=== PATIENT | male | born 1990 | race Caucasian/White ===

== ENCOUNTER 2017-10-15 03:15 | Inpatient (IN) | payer OTHER ==
[~2017-10-15] VITALS: Ht 190.5 cm; Wt 86.0 kg
[~2017-10-15 03:15] MED LIST: ALBUTEROL0.09 MG/A1 INH; ALLEGRA-D 12 HO1 TER PO; ALLEGRA180 MG PO; BENADRYL ALLERG25 M5 PO; CEPHALEXIN500 M1 PO; CLINDAMYCIN HC300 MG PO; CLINDAMYCIN150 MG PO; DEPAKOTE250 MG PO; DILANTIN100 MG PO; DIVALPROEX SOD250 M1 PO; HYDROCODONE BIT1 T11 PO; MOTRIN800 MG PO; Motrin,Rufen800 MG PO; OMNICEF300 MG PO; PREDNICOT20 MG PO; PREDNISONE10 MG PO; PREDNISONE20 M1 PO; TEGRETOL200 MG PO; TRIAMCINOLONE AC0.1% T; VICODIN 5/500 505 MG PO; ZITHROMAX250 MG PO; ZYRTEC10 MG PO
[2017-10-15 03:16] VITALS: BP 118/78
[2017-10-15 03:49] LABS: BASO % 0.3 % (0.0-1.0); EOS # 0.2 10*3/uL (0.0-0.4); EOS % 2.2 % (1.0-4.0); HEMATOCRIT 39.3 % (42.0-52.0); LYMPH # 1.9 10*3/uL (1.3-4.4); LYMPH % 25.5 % (27.0-41.0); MEAN CELL VOLUME 94.2 fl (80.0-94.0); MEAN CORPUSCULAR HGB 31.2 pg (27.0-31.0); MEAN CORPUSCULAR HGB CONC 33.1 g/dl (33.0-37.0); MEAN PLATELET VOLUME 12.3 fl (9.6-12.3); MONO # 0.4 10*3/uL (0.1-1.0); MONO % 5.4 % (3.0-9.0); NEUT # 4.8 10*3/uL (2.3-7.9); NEUT % 66.5 % (47.0-73.0); PLATELET COUNT AUTOMATED 128 10*3/uL (130-400); RED BLOOD COUNT 4.17 10*6/uL (4.50-5.90); RED CELL DISTRI WIDTH 12.1 % (0-14.5); WHITE BLOOD COUNT 7.3 10*3/uL (4.8-10.8)
[2017-10-15 03:58] LABS: ACT PARTIAL THROMBO TIME 22.4 SECONDS (20.8-31.5); INTERNATIONAL NORM RATIO 1.1 (2.0-3.5)
[2017-10-15 04:02] LABS: BILIRUBIN NEGATIVE (NEGATIVE); BLOOD NEGATIVE (NEGATIVE); CLARITY CLEAR (CLEAR); COLOR YELLOW (YELLOW); GLUCOSE NEGATIVE (NEGATIVE); KETONE NEGATIVE (NEGATIVE); LEUKO ESTERASE NEGATIVE (NEGATIVE); NITRITE NEGATIVE (NEGATIVE); PH 5.5 (5.0-9.0); SPECIFIC GRAVITY >= 1.030 (1.005-1.030); UROBILINOGEN 0.2 E.U./dl (0.2-1.0)
[2017-10-15 04:07] LABS: ALBUMIN 3.9 gm/dl (3.1-4.5); ALKALINE PHOSPHATASE 110 U/L (45-117); BUN 14 mg/dl (7-24); CHLORIDE 106 mmol/L (98-107); CREATININE 1.01 mg/dL (0.70-1.30); POTASSIUM 4.2 mmol/L (3.5-5.1); SGOT/AST 33 IU/L (3-35); SGPT/ALT 62 U/L (12-78); SODIUM 144 mmol/L (136-145); TOTAL PROTEIN 6.9 gm/dL (6.4-8.2)
[2017-10-15 04:10] LABS: LIPASE 8341 U/L (73-393); TROPONIN I < 0.015 ng/ml (<0.045)
[2017-10-15 04:13] LABS: WBC 0-2 wbc/hpf (0-5)
[2017-10-15 04:25] VITALS: BP 110/34
[2017-10-15 04:38] VITALS: BP 102/40
[2017-10-15 07:52] LABS: THYROID STIM HORMONE (HS) 0.707 uIU/ml (0.358-4.75)
[2017-10-15 08:00] VITALS: BP 122/63
[2017-10-15 08:05] LABS: VITAMIN D, 25-HYDROXY 16.1 ng/mL (30-100)
[2017-10-15 16:00] VITALS: BP 107/62
[2017-10-15 20:00] VITALS: BP 130/74
[2017-10-16] VITALS: BP 125/75
[2017-10-16 06:03] LABS: ALBUMIN 3.5 gm/dl (3.1-4.5); ALKALINE PHOSPHATASE 90 U/L (45-117); BUN 14 mg/dl (7-24); CHLORIDE 110 mmol/L (98-107); CREATININE 0.93 mg/dL (0.70-1.30); LIPASE 260 U/L (73-393); POTASSIUM 4.2 mmol/L (3.5-5.1); SGOT/AST 35 IU/L (3-35); SGPT/ALT 65 U/L (12-78); SODIUM 143 mmol/L (136-145); TOTAL PROTEIN 5.9 gm/dL (6.4-8.2)
[2017-10-16 06:51] LABS: BASO % 0.4 % (0.0-1.0); EOS # 0.1 10*3/uL (0.0-0.4); EOS % 2.5 % (1.0-4.0); HEMATOCRIT 37.7 % (42.0-52.0); HEMOGLOBIN 12.3 g/dl (14.0-18.0); LYMPH # 1.8 10*3/uL (1.3-4.4); LYMPH % 31.3 % (27.0-41.0); MEAN CELL VOLUME 94.3 fl (80.0-94.0); MEAN CORPUSCULAR HGB 30.8 pg (27.0-31.0); MEAN CORPUSCULAR HGB CONC 32.6 g/dl (33.0-37.0); MONO # 0.3 10*3/uL (0.1-1.0); MONO % 6.1 % (3.0-9.0); NEUT # 3.3 10*3/uL (2.3-7.9); NEUT % 59.5 % (47.0-73.0); PLATELET COUNT AUTOMATED 99 10*3/uL (130-400); RED CELL DISTRI WIDTH 12.2 % (0-14.5); WHITE BLOOD COUNT 5.6 10*3/uL (4.8-10.8)
[2017-10-16 08:00] VITALS: BP 128/67
[2017-10-16 12:00] VITALS: BP 118/72
[2017-10-16] MEDS ORDERED: ZOFRAN4 MG PO (13:36)
== END 2017-10-16 15:00 | disposition home or self-care (01) | DRG 440 ==
LOC: ED 03:15 → 4E 04:59 → EDHOLD 04:59 → 4E 05:16
PROVIDERS: Internal Medicine; Internal Medicine Hospice and Palliative Medicine; Student in an Organized Health Care Education/Training Program
DX: K85.90 Acute pancreatitis without necrosis or infection, unspecified (principal); D69.6 Thrombocytopenia, unspecified; E87.8 Other disorders of electrolyte and fluid balance, not elsewhere classified; R07.9 Chest pain, unspecified; D53.9 Nutritional anemia, unspecified; D72.810 Lymphocytopenia; R73.9 Hyperglycemia, unspecified; G40.909 Epilepsy, unspecified, not intractable, without status epilepticus; F12.10 Cannabis abuse, uncomplicated; E53.8 Deficiency of other specified B group vitamins; E55.9 Vitamin D deficiency, unspecified; Z82.49 Family history of ischemic heart disease and other diseases of the circulatory system; Z84.89 Family history of other specified conditions; Z88.1 Allergy status to other antibiotic agents; Z88.0 Allergy status to penicillin; Z83.3 Family history of diabetes mellitus; Z82.3 Family history of stroke

== ENCOUNTER 2017-11-02 00:48 | Emergency (ER) | payer OTHER ==
[~2017-11-02] VITALS: Ht 190.5 cm; Wt 81.6 kg
[~2017-11-02 00:48] MED LIST changes: +ZOFRAN4 MG PO
== END 2017-11-02 01:38 | disposition home or self-care (01) ==
LOC: ED 00:48
DX: R21 Rash and other nonspecific skin eruption (principal); F12.10 Cannabis abuse, uncomplicated; Z88.1 Allergy status to other antibiotic agents; Z88.0 Allergy status to penicillin

== ENCOUNTER 2018-09-30 18:54 | Emergency (ER) | payer OTHER ==
[~2018-09-30] VITALS: Wt 81.6 kg
--- NOTE | ~2018-09-30 | EKG ---
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
[2018-09-30 20:32] LABS: MEAN CELL VOLUME 88.2 fl (80.0-94.0); MEAN CORPUSCULAR HGB 31.4 pg (27.0-31.0); MEAN CORPUSCULAR HGB CONC 35.6 g/dl (33.0-37.0); MEAN PLATELET VOLUME 11.9 fl (9.6-12.3); PLATELET COUNT AUTOMATED 145 10*3/uL (130-400); RED CELL DISTRI WIDTH 12.8 % (0-14.5); WHITE BLOOD COUNT 14.9 10*3/uL (4.8-10.8)
[2018-09-30 20:48] LABS: ACETAMINOPHEN (TYLENOL) < 5.0 ug/ml (10-30); ETHYL ALCOHOL < 3.0 mg/dl (<3)
[2018-09-30 20:50] LABS: ALBUMIN 4.5 gm/dl (3.1-4.5); ALKALINE PHOSPHATASE 107 U/L (45-117); BUN 12 mg/dl (7-24); CHLORIDE 106 mmol/L (98-107); CREATININE 1.17 mg/dL (0.70-1.30); POTASSIUM 3.9 mmol/L (3.5-5.1); SGOT/AST 23 IU/L (3-35); SGPT/ALT 35 U/L (12-78); SODIUM 139 mmol/L (136-145); TOTAL PROTEIN 7.8 gm/dL (6.4-8.2); TROPONIN I 0.016 ng/ml (<0.045)
[2018-09-30 21:04] LABS: BASOPHILS 1 % (0-1); TOTAL CELLS COUNTED 100 #CELLS
[2018-09-30 21:05] LABS: PLATELET SUFFICIENCY NORMAL (NORMAL)
[2018-09-30 22:28] LABS: BILIRUBIN NEGATIVE (NEGATIVE); BLOOD NEGATIVE (NEGATIVE); CLARITY SL CLOUDY (CLEAR); COLOR YELLOW (YELLOW); GLUCOSE NEGATIVE (NEGATIVE); KETONE 3+ (NEGATIVE); LEUKO ESTERASE NEGATIVE (NEGATIVE); NITRITE NEGATIVE (NEGATIVE); SPECIFIC GRAVITY 1.025 (1.005-1.030); UROBILINOGEN 0.2 E.U./dl (0.2-1.0)
[2018-09-30 22:36] LABS: URINE AMPHETAMINES < 1000 (1000ng/ml); URINE BARBITURATES < 200 (200ng/ml); URINE BENZODIAZEPINES > 200 (200ng/ml); URINE CANNABINOIDS (THC) > 50 (50ng/ml); URINE COCAINE < 300 (300ng/ml); URINE METHADONE < 300 (300ng/ml); URINE OPIATES < 300 (300ng/ml)
[2018-09-30 22:39] LABS: URINE PHENCYCLIDINE < 25 (25ng/ml)
== END 2018-10-01 00:37 | disposition home or self-care (01) ==
LOC: ED 18:54
PROVIDERS: Student in an Organized Health Care Education/Training Program
DX: G40.909 Epilepsy, unspecified, not intractable, without status epilepticus (principal); Z88.1 Allergy status to other antibiotic agents; Z88.0 Allergy status to penicillin

== ENCOUNTER 2018-10-01 10:21 | Emergency (ER) | payer OTHER ==
[~2018-10-01] VITALS: Ht 190.5 cm; Wt 79.4 kg
--- NOTE | ~2018-10-01 | EKG ---
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
[2018-10-01 11:04] LABS: BASO % 0.1 % (0.0-1.0); EOS % 0.2 % (1.0-4.0); LYMPH # 0.7 10*3/uL (1.3-4.4); LYMPH % 6.4 % (27.0-41.0); MEAN CELL VOLUME 90.3 fl (80.0-94.0); MEAN CORPUSCULAR HGB 31.2 pg (27.0-31.0); MEAN CORPUSCULAR HGB CONC 34.5 g/dl (33.0-37.0); MEAN PLATELET VOLUME 11.9 fl (9.6-12.3); MONO # 0.6 10*3/uL (0.1-1.0); NEUT # 9.6 10*3/uL (2.3-7.9); NEUT % 87.9 % (47.0-73.0); RED BLOOD COUNT 4.43 10*6/uL (4.50-5.90); RED CELL DISTRI WIDTH 13.1 % (0-14.5); WHITE BLOOD COUNT 10.9 10*3/uL (4.8-10.8)
[2018-10-01 11:05] LABS: HEMOGLOBIN 13.8 g/dl (14.0-18.0); PLATELET COUNT AUTOMATED 114 10*3/uL (130-400)
[2018-10-01 11:09] LABS: ACT PARTIAL THROMBO TIME 23.1 SECONDS (20.8-31.5); INTERNATIONAL NORM RATIO 1.1 (2.0-3.5)
[2018-10-01 11:15] LABS: ALBUMIN 4.1 gm/dl (3.1-4.5); ALKALINE PHOSPHATASE 95 U/L (45-117); BUN 17 mg/dl (7-24); CHLORIDE 105 mmol/L (98-107); CREATININE 1.37 mg/dL (0.70-1.30); LIPASE 51 U/L (73-393); POTASSIUM 3.6 mmol/L (3.5-5.1); SGOT/AST 18 IU/L (3-35); SGPT/ALT 31 U/L (12-78); SODIUM 139 mmol/L (136-145); TOTAL PROTEIN 7.5 gm/dL (6.4-8.2); TROPONIN I 0.022 ng/ml (<0.045)
== END 2018-10-01 14:40 | disposition short-term general hospital (02) ==
LOC: ED 10:21
PROVIDERS: Emergency Medicine
DX: G40.909 Epilepsy, unspecified, not intractable, without status epilepticus (principal); F12.10 Cannabis abuse, uncomplicated; Z88.1 Allergy status to other antibiotic agents; Z88.0 Allergy status to penicillin

== ENCOUNTER 2018-10-04 17:15 | Emergency (ER) | payer OTHER ==
[~2018-10-04] VITALS: Ht 190.5 cm; Wt 79.4 kg
[2018-10-04] MEDS ORDERED: KEPPRA250 MG PO (17:21)
== END 2018-10-04 18:18 | disposition home or self-care (01) ==
LOC: ED 17:15
DX: G40.909 Epilepsy, unspecified, not intractable, without status epilepticus (principal); F12.90 Cannabis use, unspecified, uncomplicated; Z88.1 Allergy status to other antibiotic agents; Z88.0 Allergy status to penicillin; Z79.899 Other long term (current) drug therapy

== ENCOUNTER 2019-07-22 16:20 | Emergency (ER) | payer OTHER ==
[~2019-07-22] VITALS: Ht 190.5 cm; Wt 82.1 kg
[~2019-07-22 16:20] MED LIST changes: +KEPPRA250 MG PO
[2019-07-22] MEDS ORDERED: CLINDAMYCIN HC300 MG PO (17:06)
[2019-07-22] MEDS ORDERED: ANAPROX DS550 MG PO (17:06)
== END 2019-07-22 17:11 | disposition home or self-care (01) ==
LOC: ED 16:20
DX: K04.7 Periapical abscess without sinus (principal); Z88.1 Allergy status to other antibiotic agents; Z88.0 Allergy status to penicillin; Z79.899 Other long term (current) drug therapy

== ENCOUNTER → 2019-08-13 | Outpatient (CLI) | payer OTHER ==
[~2019-08-13] MED LIST changes: +ANAPROX DS550 MG PO
== END | disposition home or self-care (01) ==
LOC: RESCLI 00:41
DX: G40.804 Other epilepsy, intractable, without status epilepticus (principal); E55.9 Vitamin D deficiency, unspecified; L70.0 Acne vulgaris; R00.1 Bradycardia, unspecified; Z79.899 Other long term (current) drug therapy

== ENCOUNTER → 2019-11-26 | Outpatient (CLI) | payer OTHER | END | disposition home or self-care (01) | LOC: RESCLI 01:25 | DX: G40.804 Other epilepsy, intractable, without status epilepticus (principal); E55.9 Vitamin D deficiency, unspecified; R00.1 Bradycardia, unspecified; L70.0 Acne vulgaris; B00.9 Herpesviral infection, unspecified; Z79.899 Other long term (current) drug therapy ==

== ENCOUNTER 2020-04-10 05:01 | Emergency (ER) | payer OTHER ==
[~2020-04-10] VITALS: Ht 177.8 cm; Wt 79.4 kg
[2020-04-10 05:51] LABS: BUN 11 mg/dl (7-24); CHLORIDE 107 mmol/L (98-107); CREATININE 0.73 mg/dL (0.70-1.30); POTASSIUM 3.9 mmol/L (3.5-5.1); SODIUM 141 mmol/L (136-145)
[2020-04-10 06:09] LABS: BASO % 0.4 % (0.0-1.0); EOS # 0.1 10*3/uL (0.0-0.4); EOS % 1.3 % (1.0-4.0); HEMATOCRIT 47.9 % (42.0-52.0); LYMPH # 1.2 10*3/uL (1.3-4.4); LYMPH % 20.6 % (27.0-41.0); MEAN CELL VOLUME 88.1 fl (80.0-94.0); MEAN CORPUSCULAR HGB 30.3 pg (27.0-31.0); MEAN CORPUSCULAR HGB CONC 34.4 g/dl (33.0-37.0); MEAN PLATELET VOLUME 10.6 fl (9.6-12.3); MONO # 0.3 10*3/uL (0.1-1.0); MONO % 5.7 % (3.0-9.0); NEUT % 71.6 % (47.0-73.0); PLATELET COUNT AUTOMATED 196 10*3/uL (130-400); RED BLOOD COUNT 5.44 10*6/uL (4.50-5.90); RED CELL DISTRI WIDTH 12.3 % (0-14.5); WHITE BLOOD COUNT 5.6 10*3/uL (4.8-10.8)
== END 2020-04-10 10:00 | disposition home or self-care (01) ==
LOC: ED 05:01
PROVIDERS: Internal Medicine
DX: F10.129 Alcohol abuse with intoxication, unspecified (principal); Z88.0 Allergy status to penicillin; Z88.1 Allergy status to other antibiotic agents; Y90.9 Presence of alcohol in blood, level not specified

== ENCOUNTER 2020-06-15 15:29 | Emergency (ER) | payer OTHER | END 2020-06-15 18:33 | disposition short-term general hospital (02) | LOC: ED 15:29 | DX: S06.5X0A Traumatic subdural hemorrhage without loss of consciousness, initial encounter (principal); Z88.0 Allergy status to penicillin; Z88.1 Allergy status to other antibiotic agents; Y08.89XA Assault by other specified means, initial encounter; Y93.89 Activity, other specified; Y92.89 Other specified places as the place of occurrence of the external cause; Y99.8 Other external cause status ==

== ENCOUNTER 2020-09-14 16:21 | Emergency (ER) | payer OTHER ==
[~2020-09-14] VITALS: Wt 104.3 kg
== END 2020-09-14 16:57 | disposition home or self-care (01) ==
LOC: ED 16:21
DX: L25.9 Unspecified contact dermatitis, unspecified cause (principal); F17.200 Nicotine dependence, unspecified, uncomplicated; Z88.8 Allergy status to other drugs, medicaments and biological substances; Z79.899 Other long term (current) drug therapy

== ENCOUNTER 2020-10-09 13:52 | Emergency (ER) | payer OTHER ==
[~2020-10-09] VITALS: Wt 102.1 kg
== END 2020-10-09 14:19 | disposition left against medical advice (07) ==
LOC: ED 13:52
DX: R21 Rash and other nonspecific skin eruption (principal); Z53.21 Procedure and treatment not carried out due to patient leaving prior to being seen by health care provider

== ENCOUNTER 2020-10-10 14:03 | Emergency (ER) | payer OTHER | END 2020-10-10 15:00 | disposition left against medical advice (07) | LOC: ED 14:03 | DX: R21 Rash and other nonspecific skin eruption (principal); Z53.21 Procedure and treatment not carried out due to patient leaving prior to being seen by health care provider ==

== ENCOUNTER 2020-12-02 02:52 | Emergency (ER) | payer OTHER ==
[~2020-12-02] VITALS: Ht 190.5 cm; Wt 99.8 kg
[2020-12-02 03:11] LABS: BASO % 0.3 % (0.0-1.0); EOS # 0.3 10*3/uL (0.0-0.4); EOS % 4.4 % (1.0-4.0); HEMATOCRIT 42.6 % (42.0-52.0); LYMPH # 1.7 10*3/uL (1.3-4.4); LYMPH % 29.8 % (27.0-41.0); MEAN CELL VOLUME 90.6 fl (80.0-94.0); MEAN CORPUSCULAR HGB 31.7 pg (27.0-31.0); MEAN PLATELET VOLUME 10.3 fl (9.6-12.3); MONO # 0.4 10*3/uL (0.1-1.0); MONO % 6.8 % (3.0-9.0); NEUT # 3.4 10*3/uL (2.3-7.9); NEUT % 58.5 % (47.0-73.0); PLATELET COUNT AUTOMATED 176 10*3/uL (130-400); RED CELL DISTRI WIDTH 11.6 % (0-14.5); WHITE BLOOD COUNT 5.7 10*3/uL (4.8-10.8)
[2020-12-02 03:26] LABS: ALKALINE PHOSPHATASE 86 U/L (45-117); BUN 11 mg/dl (7-24); CHLORIDE 106 mmol/L (98-107); CREATININE 0.92 mg/dL (0.70-1.30); POTASSIUM 4.2 mmol/L (3.5-5.1); SGOT/AST 15 IU/L (3-35); SGPT/ALT 21 U/L (12-78); SODIUM 139 mmol/L (136-145); TOTAL PROTEIN 7.5 gm/dL (6.4-8.2)
[2020-12-02 04:40] LABS: BILIRUBIN Negative (Negative); BLOOD Negative (Negative); CLARITY Clear (Clear); COLOR Yellow (Yellow); GLUCOSE Negative (Negative); KETONE Negative (Negative); LEUKO ESTERASE Negative (Negative); NITRITE Negative (Negative); PH 5.5 (4.5-8.0); SPECIFIC GRAVITY 1.015 (1.001-1.030)
[2020-12-02 04:48] LABS: URINE AMPHETAMINES < 1000 (1000ng/ml); URINE BARBITURATES < 200 (200ng/ml); URINE BENZODIAZEPINES < 200 (200ng/ml); URINE CANNABINOIDS (THC) > 50 (50ng/ml); URINE COCAINE < 300 (300ng/ml); URINE METHADONE < 300 (300ng/ml); URINE OPIATES < 300 (300ng/ml)
[2020-12-02 04:49] LABS: RBC 0-2 rbc/hpf (0-2); WBC 0-2 wbc/hpf (0-5)
[2020-12-02 04:50] LABS: URINE PHENCYCLIDINE < 25 (25ng/ml)
== END 2020-12-02 05:29 | disposition home or self-care (01) ==
LOC: ED 02:52
PROVIDERS: Internal Medicine
DX: G40.909 Epilepsy, unspecified, not intractable, without status epilepticus (principal); Z72.89 Other problems related to lifestyle; Z88.8 Allergy status to other drugs, medicaments and biological substances; Z88.0 Allergy status to penicillin; Z79.899 Other long term (current) drug therapy

== ENCOUNTER 2021-04-15 12:15 | Emergency (ER) | payer OTHER ==
[~2021-04-15] VITALS: Ht 190.5 cm; Wt 106.6 kg
[2021-04-15] MEDS ORDERED: CLINDAMYCIN HC300 MG PO (12:52)
== END 2021-04-15 13:31 | disposition home or self-care (01) ==
LOC: ED 12:15
DX: K08.89 Other specified disorders of teeth and supporting structures (principal); Z88.1 Allergy status to other antibiotic agents; Z88.0 Allergy status to penicillin

== ENCOUNTER 2021-09-14 18:14 | Inpatient (IN) | payer OTHER ==
[~2021-09-14] VITALS: Ht 188 cm; Wt 97.1 kg
[2021-09-14 18:27] VITALS: BP 135/81
[2021-09-14 19:36] LABS: BASO % 0.2 % (0.0-1.0); EOS % 0.2 % (1.0-4.0); HEMATOCRIT 45.6 % (42.0-52.0); LYMPH # 0.5 10*3/uL (1.3-4.4); LYMPH % 8.4 % (27.0-41.0); MEAN CELL VOLUME 88.4 fl (80.0-94.0); MEAN CORPUSCULAR HGB 31.2 pg (27.0-31.0); MEAN CORPUSCULAR HGB CONC 35.3 g/dl (33.0-37.0); MEAN PLATELET VOLUME 10.7 fl (9.6-12.3); MONO # 0.2 10*3/uL (0.1-1.0); MONO % 3.5 % (3.0-9.0); NEUT # 5.3 10*3/uL (2.3-7.9); NEUT % 87.4 % (47.0-73.0); PLATELET COUNT AUTOMATED 180 10*3/uL (130-400); RED BLOOD COUNT 5.16 10*6/uL (4.50-5.90); RED CELL DISTRI WIDTH 12.2 % (0-14.5); WHITE BLOOD COUNT 6.1 10*3/uL (4.8-10.8)
[2021-09-14 19:56] LABS: ALKALINE PHOSPHATASE 83 U/L (45-117); BUN 19 mg/dl (7-24); CHLORIDE 106 mmol/L (98-107); LIPASE 67 U/L (73-393); POTASSIUM 4.1 mmol/L (3.5-5.1); SGOT/AST 14 IU/L (3-35); SGPT/ALT 21 U/L (12-78); SODIUM 138 mmol/L (136-145); TOTAL PROTEIN 8.5 gm/dL (6.4-8.2)
[2021-09-14 23:45] VITALS: BP 140/60; BP 140/96
[2021-09-15] MEDS ORDERED: TRILEPTAL300 MG PO
[2021-09-15 03:50] VITALS: BP 136/88
[2021-09-15 04:41] LABS: BASO % 0.4 % (0.0-1.0); EOS # 0.2 10*3/uL (0.0-0.4); EOS % 2.1 % (1.0-4.0); HEMATOCRIT 44.7 % (42.0-52.0); LYMPH # 1.7 10*3/uL (1.3-4.4); LYMPH % 20.7 % (27.0-41.0); MEAN CORPUSCULAR HGB 30.9 pg (27.0-31.0); MEAN CORPUSCULAR HGB CONC 35.1 g/dl (33.0-37.0); MEAN PLATELET VOLUME 10.5 fl (9.6-12.3); MONO # 0.5 10*3/uL (0.1-1.0); MONO % 6.5 % (3.0-9.0); NEUT # 5.6 10*3/uL (2.3-7.9); NEUT % 70.2 % (47.0-73.0); PLATELET COUNT AUTOMATED 172 10*3/uL (130-400); RED BLOOD COUNT 5.08 10*6/uL (4.50-5.90); RED CELL DISTRI WIDTH 12.1 % (0-14.5)
[2021-09-15 04:59] LABS: ALKALINE PHOSPHATASE 75 U/L (45-117); BUN 16 mg/dl (7-24); CHLORIDE 109 mmol/L (98-107); CHOLESTEROL 142 mg/dL (<200); LDL CHOLESTEROL 49 mg/dL (9-159); POTASSIUM 3.7 mmol/L (3.5-5.1); SGOT/AST 13 IU/L (3-35); SGPT/ALT 19 U/L (12-78); SODIUM 139 mmol/L (136-145); TOTAL PROTEIN 7.4 gm/dL (6.4-8.2); TRIGLYCERIDES 197 mg/dl (<150)
[2021-09-15 05:00] LABS: FREE T4 0.99 ng/dl (0.76-1.46)
[2021-09-15 05:05] LABS: THYROID STIM HORMONE (HS) 0.992 uIU/ml (0.358-4.75)
[2021-09-15 08:00] VITALS: BP 126/69
[2021-09-15 12:00] VITALS: BP 123/79
== END 2021-09-15 16:15 | disposition home or self-care (01) | DRG 313 ==
LOC: ED 18:14 → EDHOLD 22:32 → 4E 22:32
PROVIDERS: Internal Medicine; ADMIT Internal Medicine; ATTEND Internal Medicine
PROC: 4A02XM4 Measurement of Cardiac Total Activity, External Approach (ICD-10-PCS; principal; 2021-09-15)
PROC: 3E033HZ Introduction of Radioactive Substance into Peripheral Vein, Percutaneous Approach (ICD-10-PCS; 2021-09-15)
DX: R07.9 Chest pain, unspecified (principal); I48.0 Paroxysmal atrial fibrillation; F10.10 Alcohol abuse, uncomplicated; G40.909 Epilepsy, unspecified, not intractable, without status epilepticus; Z88.0 Allergy status to penicillin; Z88.1 Allergy status to other antibiotic agents; Z82.49 Family history of ischemic heart disease and other diseases of the circulatory system; Z79.899 Other long term (current) drug therapy

== ENCOUNTER 2022-07-24 17:11 | Inpatient (IN) | payer OTHER ==
[~2022-07-24] VITALS: Ht 190.5 cm; Wt 100.8 kg
[~2022-07-24 17:11] MED LIST changes: +TRILEPTAL300 MG PO
[2022-07-24 17:17] VITALS: BP 134/105
[2022-07-24] MEDS ORDERED: MINOXIDIL2.5 MG PO (17:19)
[2022-07-24] MEDS ORDERED: FINASTERIDE1 M1 PO (17:19)
[2022-07-24 17:36] LABS: BASO % 0.1 % (0.0-1.0); EOS # 0.1 10*3/uL (0.0-0.4); EOS % 0.7 % (1.0-4.0); LYMPH # 1.1 10*3/uL (1.3-4.4); LYMPH % 11.9 % (27.0-41.0); MEAN CORPUSCULAR HGB 30.9 pg (27.0-31.0); MEAN CORPUSCULAR HGB CONC 35.1 g/dl (33.0-37.0); MEAN PLATELET VOLUME 10.6 fl (9.6-12.3); MONO # 0.9 10*3/uL (0.1-1.0); MONO % 9.6 % (3.0-9.0); NEUT # 6.9 10*3/uL (2.3-7.9); NEUT % 77.5 % (47.0-73.0); PLATELET COUNT AUTOMATED 186 10*3/uL (130-400); RED BLOOD COUNT 5.57 10*6/uL (4.50-5.90); RED CELL DISTRI WIDTH 11.9 % (0-14.5); WHITE BLOOD COUNT 8.9 10*3/uL (4.8-10.8)
[2022-07-24 17:49] LABS: INTERNATIONAL NORM RATIO 1.1 (2.0-3.5)
[2022-07-24 17:56] LABS: ALKALINE PHOSPHATASE 85 U/L (46-116); BUN 12 mg/dl (9-23); CHLORIDE 101 mmol/L (98-107); SGPT/ALT 28 U/L (10-49); TOTAL PROTEIN 8.3 gm/dL (6.0-8.0)
[2022-07-24 17:58] LABS: ETHYL ALCOHOL < 3.0 mg/dl (<3)
[2022-07-24 18:29] LABS: MYOGLOBIN 1234.9 ng/ml (16-116)
[2022-07-24 18:52] VITALS: BP 124/79
[2022-07-24 20:10] LABS: URINE AMPHETAMINES Positive (1000ng/ml); URINE BARBITURATES Negative (200ng/ml); URINE BENZODIAZEPINES Negative (200ng/ml); URINE CANNABINOIDS (THC) Positive (50ng/ml); URINE COCAINE Negative (300ng/ml); URINE METHADONE Negative (300ng/ml); URINE OPIATES Negative (300ng/ml); URINE PHENCYCLIDINE Negative (25ng/ml)
[2022-07-24 21:45] VITALS: BP 140/90
[2022-07-24 22:03] VITALS: BP 140/90
[2022-07-24] MEDS ORDERED: ABREVA2 GM T (22:43)
[2022-07-24] MEDS ORDERED: ACETAMINOPHEN500 M4 PO (22:45)
[2022-07-25] VITALS: BP 131/75
[2022-07-25 05:21] LABS: VITAMIN D, 25-HYDROXY 15.8 ng/mL (30-100)
[2022-07-25 06:55] LABS: BASO % 0.2 % (0.0-1.0); EOS # 0.2 10*3/uL (0.0-0.4); EOS % 2.6 % (1.0-4.0); HEMATOCRIT 41.3 % (42.0-52.0); LYMPH # 1.5 10*3/uL (1.3-4.4); MEAN CELL VOLUME 90.2 fl (80.0-94.0); MEAN CORPUSCULAR HGB 30.8 pg (27.0-31.0); MEAN CORPUSCULAR HGB CONC 34.1 g/dl (33.0-37.0); MEAN PLATELET VOLUME 11.2 fl (9.6-12.3); MONO # 0.5 10*3/uL (0.1-1.0); MONO % 8.7 % (3.0-9.0); NEUT # 3.6 10*3/uL (2.3-7.9); NEUT % 62.2 % (47.0-73.0); PLATELET COUNT AUTOMATED 158 10*3/uL (130-400); RED BLOOD COUNT 4.58 10*6/uL (4.50-5.90); WHITE BLOOD COUNT 5.8 10*3/uL (4.8-10.8)
[2022-07-25 07:32] LABS: ALKALINE PHOSPHATASE 59 U/L (46-116); BUN 13 mg/dl (9-23); CHLORIDE 107 mmol/L (98-107); CHOLESTEROL 114 mg/dL (<200); FREE T4 1.49 ng/dl (0.89-1.76); LDL CHOLESTEROL 59 mg/dL (9-159); MYOGLOBIN 191.1 ng/ml (16-116); POTASSIUM 3.9 mmol/L (3.4-5.1); SGPT/ALT 24 U/L (10-49); THYROID STIM HORMONE (HS) 0.556 uIU/ml (0.550-4.780); TOTAL PROTEIN 6.3 gm/dL (6.0-8.0); TRIGLYCERIDES 74 mg/dl (<150)
[2022-07-25 07:43] LABS: CPK 2812 U/L (34-171)
[2022-07-25 08:00] VITALS: BP 112/60
[2022-07-25 12:00] VITALS: BP 121/63
[2022-07-25 16:00] VITALS: BP 114/82
[2022-07-25 20:00] VITALS: BP 112/65
[2022-07-26] VITALS: BP 105/47
[2022-07-26 05:30] LABS: ALKALINE PHOSPHATASE 71 U/L (46-116); BUN 13 mg/dl (9-23); CHLORIDE 107 mmol/L (98-107); POTASSIUM 4.5 mmol/L (3.4-5.1); SGPT/ALT 26 U/L (10-49); TOTAL PROTEIN 6.8 gm/dL (6.0-8.0)
[2022-07-26 06:01] LABS: CPK 1721 U/L (34-171)
[2022-07-26 06:15] LABS: HEMATOCRIT 40.4 % (42.0-52.0); MEAN CELL VOLUME 91.8 fl (80.0-94.0); MEAN CORPUSCULAR HGB 30.9 pg (27.0-31.0); MEAN CORPUSCULAR HGB CONC 33.7 g/dl (33.0-37.0); PLATELET COUNT AUTOMATED 141 10*3/uL (130-400); WHITE BLOOD COUNT 6.7 10*3/uL (4.8-10.8)
[2022-07-26 06:19] LABS: MANUAL DIFF REFLEX YES
[2022-07-26 06:54] LABS: TOTAL CELLS COUNTED 100 #CELLS
[2022-07-26 06:55] LABS: PLATELET SUFFICIENCY NORMAL (NORMAL)
[2022-07-26 08:00] VITALS: BP 119/72
== END 2022-07-26 14:02 | disposition home or self-care (01) | DRG 917 ==
LOC: ED 17:11 → 4E 20:43 → EDHOLD 20:43 → 4E 21:26
PROVIDERS: Family Medicine; Internal Medicine; Physician Assistant; ADMIT Family Medicine; ATTEND Family Medicine
DX: T43.621A Poisoning by amphetamines, accidental (unintentional), initial encounter (principal); I21.A1 Myocardial infarction type 2; M62.82 Rhabdomyolysis; F12.10 Cannabis abuse, uncomplicated; I48.91 Unspecified atrial fibrillation; G62.9 Polyneuropathy, unspecified; G40.909 Epilepsy, unspecified, not intractable, without status epilepticus; F17.210 Nicotine dependence, cigarettes, uncomplicated; R00.1 Bradycardia, unspecified; Y92.89 Other specified places as the place of occurrence of the external cause; Z88.1 Allergy status to other antibiotic agents; Z88.0 Allergy status to penicillin; Z79.1 Long term (current) use of non-steroidal anti-inflammatories (NSAID); Z79.899 Other long term (current) drug therapy; Z82.49 Family history of ischemic heart disease and other diseases of the circulatory system

== ENCOUNTER 2022-11-22 01:54 | Emergency (ER) | payer OTHER ==
[~2022-11-22] VITALS: Ht 190.5 cm; Wt 99.8 kg
[~2022-11-22 01:54] MED LIST changes: +ABREVA2 GM T; +ACETAMINOPHEN500 M4 PO; +FINASTERIDE1 M1 PO; +MINOXIDIL2.5 MG PO
[2022-11-22] MEDS ORDERED: OXCARBAZEPINE300 M1 PO (02:11)
[2022-11-22] MEDS ORDERED: VALTREX1000 MG PO (02:11)
== END 2022-11-22 02:26 | disposition home or self-care (01) ==
LOC: ED 01:54
DX: F41.9 Anxiety disorder, unspecified (principal); I48.91 Unspecified atrial fibrillation; Z88.0 Allergy status to penicillin; Z88.1 Allergy status to other antibiotic agents; F17.200 Nicotine dependence, unspecified, uncomplicated; F12.90 Cannabis use, unspecified, uncomplicated

== ENCOUNTER 2023-07-11 12:32 | Emergency (ER) | payer SELFPAY ==
[~2023-07-11] VITALS: Ht 190.5 cm; Wt 108.9 kg
[~2023-07-11 12:32] MED LIST changes: +OXCARBAZEPINE300 M1 PO; +VALTREX1000 MG PO
[2023-07-11] MEDS ORDERED: ZITHROMAX250 MG PO (13:52)
== END 2023-07-11 14:03 | disposition home or self-care (01) ==
LOC: ED 12:32
DX: J32.9 Chronic sinusitis, unspecified (principal); I48.91 Unspecified atrial fibrillation; F12.90 Cannabis use, unspecified, uncomplicated; F17.210 Nicotine dependence, cigarettes, uncomplicated; Z88.0 Allergy status to penicillin; Z88.1 Allergy status to other antibiotic agents

== ENCOUNTER 2023-07-26 15:06 | Emergency (ER) | payer SELFPAY ==
[~2023-07-26] VITALS: Ht 190.5 cm; Wt 108.9 kg
[2023-07-26] MEDS ORDERED: IOHEXOL 300 MG/ML 100 ML VIAL IV ONE (16:05)
[2023-07-26 16:07] LABS: BASO % 0.1 % (0.0-1.0); EOS # 0.2 10*3/uL (0.0-0.4); EOS % 1.2 % (1.0-4.0); HEMATOCRIT 41.6 % (42.0-52.0); LYMPH # 0.8 10*3/uL (1.3-4.4); LYMPH % 6.6 % (27.0-41.0); MEAN CORPUSCULAR HGB 30.3 pg (27.0-31.0); MEAN CORPUSCULAR HGB CONC 32.9 g/dl (33.0-37.0); MEAN PLATELET VOLUME 10.9 fl (9.6-12.3); MONO # 0.8 10*3/uL (0.1-1.0); MONO % 6.6 % (3.0-9.0); NEUT # 10.7 10*3/uL (2.3-7.9); NEUT % 85.3 % (47.0-73.0); PLATELET COUNT AUTOMATED 200 10*3/uL (130-400); RED BLOOD COUNT 4.52 10*6/uL (4.50-5.90); RED CELL DISTRI WIDTH 12.2 % (0-14.5); WHITE BLOOD COUNT 12.5 10*3/uL (4.8-10.8)
[2023-07-26 16:28] LABS: ALKALINE PHOSPHATASE 79 U/L (46-116); BUN 11 mg/dl (9-23); CHLORIDE 104 mmol/L (98-107); LIPASE 29 U/L (12-53); POTASSIUM 4.7 mmol/L (3.4-5.1); SGPT/ALT 12 U/L (5-49); TOTAL PROTEIN 7.5 gm/dL (6.0-8.0)
[2023-07-26 17:01] LABS: BILIRUBIN Negative (Negative); BLOOD Negative (Negative); CLARITY Clear (Clear); GLUCOSE Negative (Negative); KETONE Negative (Negative); LEUKO ESTERASE Negative (Negative); NITRITE Negative (Negative)
[2023-07-26 17:25] LABS: COLOR Yellow (Yellow)
[2023-07-26 17:26] LABS: RBC 0-2 rbc/hpf (0-2); WBC 0-2 wbc/hpf (0-5)
[2023-07-26] MEDS ORDERED: METRONIDAZOLE500 M1 PO (18:50)
[2023-07-26] MEDS ORDERED: CIPRO500 MG PO (18:50)
== END 2023-07-26 18:41 | disposition home or self-care (01) ==
LOC: ED 15:06
PROVIDERS: Nurse Practitioner
DX: K57.32 Diverticulitis of large intestine without perforation or abscess without bleeding (principal); I48.91 Unspecified atrial fibrillation; F17.200 Nicotine dependence, unspecified, uncomplicated; F12.90 Cannabis use, unspecified, uncomplicated; Z88.0 Allergy status to penicillin; Z88.1 Allergy status to other antibiotic agents

== ENCOUNTER 2024-01-21 01:28 | Emergency (ER) | payer SELFPAY ==
[~2024-01-21] VITALS: Ht 190.5 cm; Wt 108.9 kg
[~2024-01-21 01:28] MED LIST changes: +CIPRO500 MG PO; +METRONIDAZOLE500 M1 PO
[2024-01-21 01:57] LABS: BASO % 0.3 % (0.0-1.0); EOS # 0.2 10*3/uL (0.0-0.4); EOS % 1.9 % (1.0-4.0); HEMATOCRIT 39.4 % (42.0-52.0); LYMPH # 1.3 10*3/uL (1.3-4.4); LYMPH % 13.6 % (27.0-41.0); MEAN CELL VOLUME 89.7 fl (80.0-94.0); MEAN CORPUSCULAR HGB CONC 34.5 g/dl (33.0-37.0); MEAN PLATELET VOLUME 10.8 fl (9.6-12.3); MONO # 0.7 10*3/uL (0.1-1.0); MONO % 6.9 % (3.0-9.0); NEUT # 7.5 10*3/uL (2.3-7.9); NEUT % 77.1 % (47.0-73.0); PLATELET COUNT AUTOMATED 160 10*3/uL (130-400); RED BLOOD COUNT 4.39 10*6/uL (4.50-5.90); RED CELL DISTRI WIDTH 11.6 % (0-14.5); WHITE BLOOD COUNT 9.7 10*3/uL (4.8-10.8)
[2024-01-21 02:38] LABS: ALKALINE PHOSPHATASE 74 U/L (46-116); BUN 17 mg/dl (9-23); CHLORIDE 103 mmol/L (98-107); LIPASE 28 U/L (12-53); POTASSIUM 3.9 mmol/L (3.4-5.1); SGPT/ALT 11 U/L (5-49); TOTAL PROTEIN 7.3 gm/dL (6.0-8.0)
[2024-01-21] MEDS ORDERED: Acetaminophen/Oxycodone 5 MG/325 MG TABLET PO ONE (05:15)
[2024-01-21] MEDS ORDERED: Ciprofloxacin Hydrochloride 500 MG TAB PO ONE (05:15)
[2024-01-21] MEDS ORDERED: Ondansetron Hydrochloride 4 MG TAB SL ONE (05:15)
[2024-01-21] MEDS ORDERED: METRONIDAZOLE 500 MG TAB PO ONE (05:15)
[2024-01-21] MEDS ORDERED: CIPRO500 MG PO (05:18)
[2024-01-21] MEDS ORDERED: METRONIDAZOLE500 M1 PO (05:18)
== END 2024-01-21 05:31 | disposition home or self-care (01) ==
LOC: ED 01:28
PROVIDERS: Internal Medicine
DX: K57.92 Diverticulitis of intestine, part unspecified, without perforation or abscess without bleeding (principal); K40.90 Unilateral inguinal hernia, without obstruction or gangrene, not specified as recurrent; E80.7 Disorder of bilirubin metabolism, unspecified; F17.200 Nicotine dependence, unspecified, uncomplicated; Z88.1 Allergy status to other antibiotic agents; Z88.0 Allergy status to penicillin; Z79.899 Other long term (current) drug therapy; Z79.2 Long term (current) use of antibiotics

== ENCOUNTER 2024-02-07 13:20 | Inpatient (IN) | payer SELFPAY ==
[~2024-02-07] VITALS: Ht 190.5 cm; Wt 100.2 kg
[2024-02-07 13:25] VITALS: BP 126/86
[2024-02-07] MEDS ORDERED: Ketorolac Tromethamine 15 MG/ML VIAL IV ONE ×2 (14:00→23:30)
[2024-02-07] MEDS ORDERED: SODIUM CHLORIDE 0.9% 1,000 ML IV ONE ×2 (14:00→16:35)
[2024-02-07] MEDS ORDERED: Ondansetron Hydrochloride 4 MG/2 ML VIAL IV ONE (14:00)
[2024-02-07] MEDS ORDERED: MORPHINE Sulfate 2 MG/ML SYR IV ONE (14:00)
[2024-02-07] MEDS ORDERED: IOHEXOL 300 MG/ML 100 ML VIAL IV ONE (14:05)
[2024-02-07 14:10] LABS: BASO % 0.2 % (0.0-1.0); EOS # 0.1 10*3/uL (0.0-0.4); EOS % 2.1 % (1.0-4.0); HEMATOCRIT 47.6 % (42.0-52.0); LYMPH # 0.7 10*3/uL (1.3-4.4); MEAN CELL VOLUME 87.2 fl (80.0-94.0); MEAN CORPUSCULAR HGB 30.8 pg (27.0-31.0); MEAN CORPUSCULAR HGB CONC 35.3 g/dl (33.0-37.0); MEAN PLATELET VOLUME 10.5 fl (9.6-12.3); MONO # 0.1 10*3/uL (0.1-1.0); MONO % 1.6 % (3.0-9.0); NEUT # 5.1 10*3/uL (2.3-7.9); NEUT % 83.9 % (47.0-73.0); PLATELET COUNT AUTOMATED 214 10*3/uL (130-400); RED BLOOD COUNT 5.46 10*6/uL (4.50-5.90); RED CELL DISTRI WIDTH 11.8 % (0-14.5); WHITE BLOOD COUNT 6.1 10*3/uL (4.8-10.8)
[2024-02-07] MEDS ORDERED: LORazepam 2 MG/ML VIAL IV ONE ×2 (14:15→16:00)
[2024-02-07 14:28] LABS: ALKALINE PHOSPHATASE 79 U/L (46-116); BUN 14 mg/dl (9-23); CHLORIDE 103 mmol/L (98-107); LIPASE 28 U/L (12-53); SGPT/ALT 21 U/L (5-49); TOTAL PROTEIN 8.5 gm/dL (6.0-8.0)
[2024-02-07] MEDS ORDERED: Cefepime Hydrochloride 1 GM in SODIUM CHLORIDE 0.9% 50 ML IV ONE (15:45)
[2024-02-07] MEDS ORDERED: MORPHINE Sulfate 2 MG/ML SYR IV PRN (16:20)
[2024-02-07] MEDS ORDERED: BISACODYL 10 MG SUPP R PRN (16:20)
[2024-02-07] MEDS ORDERED: BISACODYL 5 MG TAB PO PRN (16:20)
[2024-02-07] MEDS ORDERED: Ondansetron Hydrochloride 4 MG/2 ML VIAL IV PRN (16:20)
[2024-02-07] MEDS ORDERED: Magnesium Hydroxide 30 ML UDC PO PRN (16:20)
[2024-02-07 18:01] VITALS: BP 103/45
[2024-02-07 18:30] LABS: BILIRUBIN Negative (Negative); BLOOD Negative (Negative); CLARITY Clear (Clear); COLOR Orange (Yellow); GLUCOSE Negative (Negative); KETONE 3+ (Negative); LEUKO ESTERASE Negative (Negative); NITRITE Negative (Negative); SPECIFIC GRAVITY >= 1.030 (1.001-1.030)
[2024-02-07 18:37] LABS: URINE AMPHETAMINES Negative (1000ng/ml); URINE BARBITURATES Negative (200ng/ml); URINE BENZODIAZEPINES Negative (200ng/ml); URINE CANNABINOIDS (THC) Positive (50ng/ml); URINE COCAINE Negative (300ng/ml); URINE METHADONE Negative (300ng/ml); URINE OPIATES Positive (300ng/ml); URINE PHENCYCLIDINE Negative (25ng/ml); WBC 0-2 wbc/hpf (0-5)
[2024-02-07] MEDS ORDERED: OXcarbazepine 150 MG TAB PO SCH (22:00)
[2024-02-07 22:03] VITALS: BP 114/48
[2024-02-08] VITALS (12 sets, daily range): BP systolic 99–147; BP diastolic 61–85
[2024-02-08] MEDS ORDERED: Cefepime Hydrochloride 1 GM in SODIUM CHLORIDE 0.9% 50 ML IV SCH
[2024-02-08] MEDS ORDERED: ACETAMINOPHEN 325 MG TAB PO PRN (04:05)
[2024-02-08 05:23] LABS: ALKALINE PHOSPHATASE 63 U/L (46-116); BUN 15 mg/dl (9-23); CHLORIDE 104 mmol/L (98-107); CHOLESTEROL 129 mg/dL (<200); LDL CHOLESTEROL 77 mg/dL (9-159); POTASSIUM 3.4 mmol/L (3.4-5.1); SGPT/ALT 14 U/L (5-49); TOTAL PROTEIN 6.9 gm/dL (6.0-8.0); TRIGLYCERIDES 74 mg/dl (<150)
[2024-02-08 06:24] LABS: HEMATOCRIT 41.8 % (42.0-52.0); MEAN CELL VOLUME 88.7 fl (80.0-94.0); MEAN CORPUSCULAR HGB 30.6 pg (27.0-31.0); MEAN CORPUSCULAR HGB CONC 34.4 g/dl (33.0-37.0); MEAN PLATELET VOLUME 11.6 fl (9.6-12.3); PLATELET COUNT AUTOMATED 152 10*3/uL (130-400); RED BLOOD COUNT 4.71 10*6/uL (4.50-5.90); RED CELL DISTRI WIDTH 11.6 % (0-14.5)
[2024-02-08 06:44] LABS: MANUAL DIFF REFLEX YES
[2024-02-08 07:36] LABS: PLATELET SUFFICIENCY NORMAL (NORMAL); TOTAL CELLS COUNTED 100 #CELLS
[2024-02-08] MEDS ORDERED: SODIUM CHLORIDE 0.9% 50 ML BAG IV ONE (08:53)
[2024-02-08] MEDS ORDERED: Cefepime Hydrochloride 1 GM VIAL IV ONE (08:53)
[2024-02-08] MEDS ORDERED: HYDROmorphONE Hydrochloride 0.5 MG/0.5 ML SYRINGE IV PRN (11:40)
[2024-02-08] MEDS ORDERED: Ketorolac Tromethamine 15 MG/ML VIAL IV PRN (11:45)
[2024-02-08] MEDS ORDERED: SODIUM CHLORIDE 0.9% 1,000 ML IV ONE (12:55)
[2024-02-08] MEDS ORDERED: Bupivacaine Hydrochloride/Ep2 30 ML VIAL ONE ×2 (13:55→15:35)
[2024-02-08] MEDS ORDERED: Ondansetron Hydrochloride 4 MG/2 ML VIAL ONE (16:22)
[2024-02-08] MEDS ORDERED: HYDROmorphONE Hydrochloride 0.5 MG/0.5 ML SYRINGE ONE (16:22)
[2024-02-08] MEDS ORDERED: Ondansetron Hydrochloride 4 MG/2 ML VIAL IV ONE ×2 (16:25→16:44)
[2024-02-08] MEDS ORDERED: HYDROmorphONE Hydrochloride 0.5 MG/0.5 ML SYRINGE IV ONE (16:25)
[2024-02-08] MEDS ORDERED: SUGAMMADEX SODIUM 200 MG/2 ML VIAL IV ONE (16:44)
[2024-02-08] MEDS ORDERED: Ketamine Hydrochloride 500 MG/10 ML VIAL IV ONE (16:44)
[2024-02-08] MEDS ORDERED: Dexamethasone Sodium Phospha 4 MG/ML VIAL IV ONE (16:44)
[2024-02-08] MEDS ORDERED: PROPOFOL 200 MG/20 ML VIAL IV ONE (16:44)
[2024-02-08] MEDS ORDERED: fentaNYL CITRATE 100 MCG/2 ML VIAL IV ONE (16:44)
[2024-02-08] MEDS ORDERED: Lidocaine Hydrochloride 5 ML VIAL IV ONE (16:44)
[2024-02-08] MEDS ORDERED: Ketorolac Tromethamine 30 MG/ML VIAL IV ONE (16:44)
[2024-02-08] MEDS ORDERED: Succinylcholine Chloride 200 MG/10 ML SYRINGE IV ONE (16:44)
[2024-02-08] MEDS ORDERED: ROCURONIUM BROMIDE 50 MG/5 ML SYRINGE IV ONE (16:44)
[2024-02-08] MEDS ORDERED: Midazolam Hydrochloride 2 MG/2 ML VIAL IV ONE (16:44)
[2024-02-08] MEDS ORDERED: Lactated Ringer's Solution 1,000 ML IV ONE ×2 (16:55→19:35)
[2024-02-08] MEDS ORDERED: Lactated Ringer's Solution 1,000 ML IV SCH (21:00)
[2024-02-09] VITALS: BP 129/70
[2024-02-09] MEDS ORDERED: TEMAZEPAM 15 MG CAP PO PRN (00:15)
[2024-02-09 03:21] LABS: HEMATOCRIT 38.4 % (42.0-52.0); MEAN CELL VOLUME 89.3 fl (80.0-94.0); MEAN CORPUSCULAR HGB 30.5 pg (27.0-31.0); MEAN CORPUSCULAR HGB CONC 34.1 g/dl (33.0-37.0); MEAN PLATELET VOLUME 10.7 fl (9.6-12.3); PLATELET COUNT AUTOMATED 160 10*3/uL (130-400); RED CELL DISTRI WIDTH 11.9 % (0-14.5); WHITE BLOOD COUNT 14.2 10*3/uL (4.8-10.8)
[2024-02-09 03:22] LABS: MANUAL DIFF REFLEX YES
[2024-02-09 03:40] LABS: BUN 15 mg/dl (9-23); CHLORIDE 104 mmol/L (98-107); POTASSIUM 3.7 mmol/L (3.4-5.1)
[2024-02-09 03:54] LABS: PLATELET SUFFICIENCY NORMAL (NORMAL); TOTAL CELLS COUNTED 100 #CELLS
[2024-02-09 08:00] VITALS: BP 134/75
[2024-02-09] MEDS ORDERED: Acetaminophen/Oxycodone 5 MG/325 MG TABLET PO PRN (11:50)
[2024-02-09] MEDS ORDERED: BISACODYL 5 MG TAB PO SCH ×2 (13:00→22:00)
[2024-02-09] MEDS ORDERED: Metoclopramide Hydrochloride 10 MG/2 ML AMP IV PRN (13:00)
[2024-02-09 16:09] VITALS: BP 136/77
[2024-02-09] MEDS ORDERED: Ondansetron Hydrochloride 4 MG/2 ML VIAL IV ONE (19:25)
[2024-02-09 20:00] VITALS: BP 144/82
[2024-02-09] MEDS ORDERED: Promethazine Hydrochloride 25 MG/ML VIAL IV PRN (20:45)
[2024-02-09] MEDS ORDERED: LORazepam 2 MG/ML VIAL IV ONE (23:55)
[2024-02-10] VITALS (9 sets, daily range): BP systolic 115–160; BP diastolic 54–94
[2024-02-10 05:54] LABS: BUN 11 mg/dl (9-23); CHLORIDE 102 mmol/L (98-107); POTASSIUM 3.4 mmol/L (3.4-5.1)
[2024-02-10 06:06] LABS: BASO % 0.1 % (0.0-1.0); HEMATOCRIT 38.9 % (42.0-52.0); LYMPH # 0.6 10*3/uL (1.3-4.4); MEAN CELL VOLUME 90.5 fl (80.0-94.0); MEAN CORPUSCULAR HGB CONC 33.2 g/dl (33.0-37.0); MEAN PLATELET VOLUME 11.5 fl (9.6-12.3); MONO # 0.8 10*3/uL (0.1-1.0); MONO % 6.5 % (3.0-9.0); NEUT # 10.8 10*3/uL (2.3-7.9); PLATELET COUNT AUTOMATED 168 10*3/uL (130-400); RED CELL DISTRI WIDTH 11.9 % (0-14.5); WHITE BLOOD COUNT 12.3 10*3/uL (4.8-10.8)
[2024-02-10] MEDS ORDERED: Naloxone Hydrochloride 0.4 MG/ML VIAL IV PRN ×2 (07:50→17:35)
[2024-02-10] MEDS ORDERED: MORPHINE Sulfate 30 MG/30 ML SYR IV SCH (07:50)
[2024-02-10] MEDS ORDERED: MORPHINE Sulfate 50 MG in SODIUM CHLORIDE 0.9% 45 ML IV SCH (07:55)
[2024-02-10] MEDS ORDERED: DEXTROSE 5% 1,000 ML IV SCH (08:00)
[2024-02-10] MEDS ORDERED: METRONIDAZOLE 100 ML IV SCH (14:00)
[2024-02-10] MEDS ORDERED: Bupivacaine Hydrochloride/Ep2 30 ML VIAL ONE (14:46)
[2024-02-10] MEDS ORDERED: Lactated Ringer's Solution 1,000 ML IV ONE (15:31)
[2024-02-10] MEDS ORDERED: Succinylcholine Chloride 200 MG/10 ML SYRINGE IV ONE (16:14)
[2024-02-10] MEDS ORDERED: Midazolam Hydrochloride 2 MG/2 ML VIAL IV ONE (16:14)
[2024-02-10] MEDS ORDERED: PROPOFOL 200 MG/20 ML VIAL IV ONE (16:14)
[2024-02-10] MEDS ORDERED: fentaNYL CITRATE 100 MCG/2 ML VIAL IV ONE (16:14)
[2024-02-10] MEDS ORDERED: Ketorolac Tromethamine 30 MG/ML VIAL IV ONE (16:14)
[2024-02-10] MEDS ORDERED: Lidocaine Hydrochloride 5 ML VIAL IV ONE (16:14)
[2024-02-10] MEDS ORDERED: Dexamethasone Sodium Phospha 4 MG/ML VIAL IV ONE (16:14)
[2024-02-10] MEDS ORDERED: Ondansetron Hydrochloride 4 MG/2 ML VIAL IV ONE (16:14)
[2024-02-10] MEDS ORDERED: DEXTROSE 5% SALINE 0.45% 1,000 ML IV SCH (16:40)
[2024-02-10] MEDS ORDERED: MORPHINE Sulfate 100 MG in SODIUM CHLORIDE 0.9% 90 ML IV SCH (17:35)
[2024-02-11] VITALS: BP 130/74
[2024-02-11 05:48] LABS: BUN 12 mg/dl (9-23); CHLORIDE 103 mmol/L (98-107); POTASSIUM 3.8 mmol/L (3.4-5.1)
[2024-02-11 05:59] LABS: HEMATOCRIT 34.1 % (42.0-52.0); MEAN CELL VOLUME 89.5 fl (80.0-94.0); MEAN CORPUSCULAR HGB 30.7 pg (27.0-31.0); MEAN CORPUSCULAR HGB CONC 34.3 g/dl (33.0-37.0); MEAN PLATELET VOLUME 11.5 fl (9.6-12.3); PLATELET COUNT AUTOMATED 169 10*3/uL (130-400); RED BLOOD COUNT 3.81 10*6/uL (4.50-5.90); RED CELL DISTRI WIDTH 11.7 % (0-14.5); WHITE BLOOD COUNT 9.1 10*3/uL (4.8-10.8)
[2024-02-11 06:09] LABS: MANUAL DIFF REFLEX YES
[2024-02-11 06:47] LABS: PLATELET SUFFICIENCY NORMAL (NORMAL); TOTAL CELLS COUNTED 100 #CELLS
[2024-02-11 08:00] VITALS: BP 136/82
[2024-02-11] MEDS ORDERED: DICLOFENAC SODIUM 100 GM TUBE T SCH (10:00)
[2024-02-11 12:00] VITALS: BP 126/82
[2024-02-11] MEDS ORDERED: LORazepam 2 MG/ML VIAL IV PRN (14:45)
[2024-02-11 16:00] VITALS: BP 124/74
[2024-02-11 20:00] VITALS: BP 125/77
[2024-02-11] MEDS ORDERED: MORPHINE Sulfate 50 MG in SODIUM CHLORIDE 0.9% 45 ML IV SCH (21:25)
[2024-02-11] MEDS ORDERED: CALCIUM (TUMS) 500MG PO PRN (21:30)
[2024-02-11] MEDS ORDERED: Pantoprazole Sodium 40 MG VIAL IV SCH (21:35)
[2024-02-12] VITALS: BP 122/68
[2024-02-12 08:00] VITALS: BP 121/64
[2024-02-12 09:10] LABS: BASO % 0.2 % (0.0-1.0); EOS # 0.1 10*3/uL (0.0-0.4); EOS % 1.4 % (1.0-4.0); HEMATOCRIT 34.8 % (42.0-52.0); LYMPH # 1.4 10*3/uL (1.3-4.4); MEAN CELL VOLUME 91.3 fl (80.0-94.0); MEAN CORPUSCULAR HGB 30.7 pg (27.0-31.0); MEAN CORPUSCULAR HGB CONC 33.6 g/dl (33.0-37.0); MEAN PLATELET VOLUME 10.4 fl (9.6-12.3); MONO # 0.4 10*3/uL (0.1-1.0); MONO % 6.9 % (3.0-9.0); NEUT # 4.3 10*3/uL (2.3-7.9); NEUT % 68.3 % (47.0-73.0); PLATELET COUNT AUTOMATED 150 10*3/uL (130-400); RED BLOOD COUNT 3.81 10*6/uL (4.50-5.90); RED CELL DISTRI WIDTH 11.9 % (0-14.5); WHITE BLOOD COUNT 6.2 10*3/uL (4.8-10.8)
[2024-02-12 09:29] LABS: BUN 18 mg/dl (9-23); CHLORIDE 104 mmol/L (98-107); POTASSIUM 3.2 mmol/L (3.4-5.1)
[2024-02-12] MEDS ORDERED: Enoxaparin Sodium 40 MG/0.4 ML SYR SC SCH (10:00)
[2024-02-12 11:14] VITALS: BP 141/87
[2024-02-12] MEDS ORDERED: POTASSIUM CHLORIDE IN WATER 100 ML IV SCH (12:00)
[2024-02-12 15:18] VITALS: BP 142/79
[2024-02-12 20:00] VITALS: BP 122/81
[2024-02-12 22:00] VITALS: BP 133/74
[2024-02-13] VITALS (8 sets, daily range): BP systolic 113–128; BP diastolic 60–80
[2024-02-13 06:43] LABS: BASO % 0.1 % (0.0-1.0); EOS # 0.2 10*3/uL (0.0-0.4); EOS % 3.1 % (1.0-4.0); HEMATOCRIT 33.2 % (42.0-52.0); LYMPH # 1.6 10*3/uL (1.3-4.4); LYMPH % 22.9 % (27.0-41.0); MEAN CELL VOLUME 89.5 fl (80.0-94.0); MEAN CORPUSCULAR HGB 30.5 pg (27.0-31.0); MEAN PLATELET VOLUME 10.8 fl (9.6-12.3); MONO # 0.5 10*3/uL (0.1-1.0); MONO % 7.6 % (3.0-9.0); NEUT # 4.5 10*3/uL (2.3-7.9); NEUT % 65.9 % (47.0-73.0); PLATELET COUNT AUTOMATED 180 10*3/uL (130-400); RED BLOOD COUNT 3.71 10*6/uL (4.50-5.90); RED CELL DISTRI WIDTH 11.7 % (0-14.5); WHITE BLOOD COUNT 6.8 10*3/uL (4.8-10.8)
[2024-02-13 07:48] LABS: BUN 16 mg/dl (9-23); CHLORIDE 103 mmol/L (98-107); POTASSIUM 3.2 mmol/L (3.4-5.1)
[2024-02-13] MEDS ORDERED: POTASSIUM CHLORIDE IN WATER 100 ML IV SCH (09:00)
[2024-02-14] VITALS: BP 132/79
[2024-02-14 05:40] LABS: ALKALINE PHOSPHATASE 81 U/L (46-116); BUN 9 mg/dl (9-23); CHLORIDE 104 mmol/L (98-107); POTASSIUM 3.5 mmol/L (3.4-5.1); SGPT/ALT 57 U/L (5-49); TOTAL PROTEIN 5.7 gm/dL (6.0-8.0)
[2024-02-14 06:01] LABS: BASO % 0.3 % (0.0-1.0); EOS # 0.3 10*3/uL (0.0-0.4); EOS % 4.5 % (1.0-4.0); HEMATOCRIT 32.6 % (42.0-52.0); LYMPH # 1.3 10*3/uL (1.3-4.4); LYMPH % 19.1 % (27.0-41.0); MEAN CELL VOLUME 88.6 fl (80.0-94.0); MEAN CORPUSCULAR HGB 30.2 pg (27.0-31.0); MEAN PLATELET VOLUME 10.7 fl (9.6-12.3); MONO # 0.5 10*3/uL (0.1-1.0); MONO % 7.5 % (3.0-9.0); NEUT # 4.5 10*3/uL (2.3-7.9); NEUT % 67.8 % (47.0-73.0); PLATELET COUNT AUTOMATED 193 10*3/uL (130-400); RED BLOOD COUNT 3.68 10*6/uL (4.50-5.90); RED CELL DISTRI WIDTH 11.6 % (0-14.5); WHITE BLOOD COUNT 6.7 10*3/uL (4.8-10.8)
[2024-02-14 08:00] VITALS: BP 127/71
[2024-02-14 11:56] VITALS: BP 131/77
[2024-02-14 16:00] VITALS: BP 99/48
[2024-02-14] MEDS ORDERED: SODIUM CHLORIDE 0.9% 500 ML IV ONE ×2 (16:50→17:04)
[2024-02-14 17:55] VITALS: BP 121/55
[2024-02-14 20:00] VITALS: BP 134/86
[2024-02-14] MEDS ORDERED: hydrOXYzine pamoate 25 MG CAP PEG ONE (20:00)
[2024-02-15] VITALS: BP 133/86
[2024-02-15 06:18] LABS: BUN 7 mg/dl (9-23); CHLORIDE 105 mmol/L (98-107); POTASSIUM 3.6 mmol/L (3.4-5.1)
[2024-02-15 08:00] VITALS: BP 122/68
[2024-02-15] MEDS ORDERED: PSYLLIUM 1 PCK PACKET PO SCH (10:00)
[2024-02-15 12:00] VITALS: BP 123/57; BP 91/44
[2024-02-15 16:00] VITALS: BP 131/58
[2024-02-15 20:00] VITALS: BP 117/58
[2024-02-16] VITALS: BP 120/62
[2024-02-16 06:33] LABS: BASO % 0.2 % (0.0-1.0); EOS # 0.3 10*3/uL (0.0-0.4); EOS % 4.8 % (1.0-4.0); HEMATOCRIT 33.6 % (42.0-52.0); LYMPH # 1.3 10*3/uL (1.3-4.4); MEAN CELL VOLUME 90.3 fl (80.0-94.0); MEAN CORPUSCULAR HGB 30.1 pg (27.0-31.0); MEAN CORPUSCULAR HGB CONC 33.3 g/dl (33.0-37.0); MEAN PLATELET VOLUME 10.8 fl (9.6-12.3); MONO # 0.4 10*3/uL (0.1-1.0); MONO % 6.9 % (3.0-9.0); NEUT # 3.3 10*3/uL (2.3-7.9); NEUT % 63.1 % (47.0-73.0); PLATELET COUNT AUTOMATED 200 10*3/uL (130-400); RED BLOOD COUNT 3.72 10*6/uL (4.50-5.90); RED CELL DISTRI WIDTH 11.9 % (0-14.5); WHITE BLOOD COUNT 5.2 10*3/uL (4.8-10.8)
[2024-02-16 06:55] LABS: ALKALINE PHOSPHATASE 71 U/L (46-116); BUN 9 mg/dl (9-23); CHLORIDE 105 mmol/L (98-107); POTASSIUM 3.9 mmol/L (3.4-5.1); SGPT/ALT 78 U/L (5-49); TOTAL PROTEIN 5.9 gm/dL (6.0-8.0)
[2024-02-16 08:00] VITALS: BP 122/61
[2024-02-16] MEDS ORDERED: Valacyclovir Hydrochloride 500 MG CAP PO SCH (10:00)
[2024-02-16] MEDS ORDERED: HYDROCODONE-AC1 EAC1 PO (11:32)
[2024-02-16] MEDS ORDERED: METAMUCIL FIBE3.4 GM PO (11:32)
[2024-02-16 12:00] VITALS: BP 120/65
[2024-02-16] MEDS ORDERED: Acetaminophen/Oxycodone 5 MG/325 MG TABLET PO ONE (14:45)
== END 2024-02-16 16:53 | disposition home or self-care (01) | DRG 330 ==
LOC: ED 13:20 → EDHOLD 15:51 → 4E 15:51 → EDHOLD 16:29 → 4E 02-08 09:22
PROVIDERS: Emergency Medicine; Internal Medicine; Student in an Organized Health Care Education/Training Program; ADMIT Student in an Organized Health Care Education/Training Program; ATTEND Student in an Organized Health Care Education/Training Program
PROC: 0DTN0ZZ Resection of Sigmoid Colon, Open Approach (ICD-10-PCS; principal; 2024-02-09)
PROC: 0D1N0Z4 Bypass Sigmoid Colon to Cutaneous, Open Approach (ICD-10-PCS; 2024-02-09)
PROC: 0DN80ZZ Release Small Intestine, Open Approach (ICD-10-PCS; 2024-02-09)
PROC: 0JC80ZZ Extirpation of Matter from Abdomen Subcutaneous Tissue and Fascia, Open Approach (ICD-10-PCS; 2024-02-10)
PROC: 0D9670Z Drainage of Stomach with Drainage Device, Via Natural or Artificial Opening (ICD-10-PCS; 2024-02-10)
DX: K57.20 Diverticulitis of large intestine with perforation and abscess without bleeding (principal); K91.30 Postprocedural intestinal obstruction, unspecified as to partial versus complete; R18.8 Other ascites; I48.91 Unspecified atrial fibrillation; E80.6 Other disorders of bilirubin metabolism; F17.200 Nicotine dependence, unspecified, uncomplicated; G40.909 Epilepsy, unspecified, not intractable, without status epilepticus; Z88.0 Allergy status to penicillin; Z88.8 Allergy status to other drugs, medicaments and biological substances; Z91.09 Other allergy status, other than to drugs and biological substances; Z79.899 Other long term (current) drug therapy; Z79.01 Long term (current) use of anticoagulants; Z79.2 Long term (current) use of antibiotics; Z83.3 Family history of diabetes mellitus; Z82.3 Family history of stroke; Z82.49 Family history of ischemic heart disease and other diseases of the circulatory system

== ENCOUNTER 2024-12-06 14:48 | Emergency (ER) | payer BC ==
[~2024-12-06] VITALS: Ht 190.5 cm; Wt 99.8 kg
[~2024-12-06 14:48] MED LIST changes: +HYDROCODONE-AC1 EAC1 PO; +METAMUCIL FIBE3.4 GM PO
[2024-12-06 15:20] LABS: BASO % 0.4 % (0.0-1.0); EOS # 0.2 10*3/uL (0.0-0.4); EOS % 4.4 % (1.0-4.0); HEMATOCRIT 40.1 % (42.0-52.0); MEAN CELL VOLUME 87.2 fl (80.0-94.0); MEAN CORPUSCULAR HGB 30.4 pg (27.0-31.0); MEAN CORPUSCULAR HGB CONC 34.9 g/dl (33.0-37.0); MEAN PLATELET VOLUME 10.3 fl (9.6-12.3); MONO # 0.4 10*3/uL (0.1-1.0); MONO % 6.4 % (3.0-9.0); NEUT # 3.7 10*3/uL (2.3-7.9); NEUT % 67.2 % (47.0-73.0); PLATELET COUNT AUTOMATED 156 10*3/uL (130-400); WHITE BLOOD COUNT 5.4 10*3/uL (4.8-10.8)
[2024-12-06 15:38] LABS: BUN 13 mg/dl (9-23); CHLORIDE 106 mmol/L (98-107); POTASSIUM 4.2 mmol/L (3.4-5.1)
== END 2024-12-06 15:49 | disposition home or self-care (01) ==
LOC: ED 14:48
PROVIDERS: Nurse Practitioner Family
DX: R53.1 Weakness (principal); T43.595A Adverse effect of other antipsychotics and neuroleptics, initial encounter; R11.0 Nausea; R00.0 Tachycardia, unspecified; Z93.3 Colostomy status; Z88.1 Allergy status to other antibiotic agents; Z88.0 Allergy status to penicillin; Z79.899 Other long term (current) drug therapy; Z87.891 Personal history of nicotine dependence; Y92.89 Other specified places as the place of occurrence of the external cause

== ENCOUNTER 2025-03-23 06:56 | Emergency (ER) | payer BC ==
[~2025-03-23] VITALS: Ht 190.5 cm; Wt 95.3 kg
[2025-03-23] MEDS ORDERED: PREDNISONE20 M1 PO (07:22)
[2025-03-23] MEDS ORDERED: AVPAK AZITHROM250 M1 PO (07:22)
== END 2025-03-23 07:32 | disposition home or self-care (01) ==
LOC: ED 06:56
DX: J04.0 Acute laryngitis (principal); Z88.1 Allergy status to other antibiotic agents; Z88.0 Allergy status to penicillin; Z79.899 Other long term (current) drug therapy; Z87.891 Personal history of nicotine dependence